=== PATIENT | male | born 1955 | race Caucasian/White ===

== ENCOUNTER → 2017-08-07 | Outpatient (CLI) | payer OTHER | END | disposition home or self-care (01) | LOC: PCVCIMAG 10:48 | DX: I08.1 Rheumatic disorders of both mitral and tricuspid valves (principal); I48.91 Unspecified atrial fibrillation; J90 Pleural effusion, not elsewhere classified; R06.00 Dyspnea, unspecified | CPT/HCPCS: 93306 ==